=== PATIENT | male | born 1955 | race Caucasian/White ===

== ENCOUNTER 2016-12-23 05:35 | Day surgery (SDC) | payer OTHER ==
[~2016-12-23] VITALS: Ht 177.8 cm; Wt 88.9 kg
--- NOTE | ~2016-12-23 | O ---
[facility] [place] [address] OPERATIVE REPORT Name: JASWANT PICKERING Room #: DEP [facility] MNeisha.#: [id number] Admission: 12/23/16 Attend Phys: Jun Swain MD Discharge: 12/23/16 Date of : 53 Report #: [id number] THIS REPORT FOR: //name// CC: Koki Hong MD [facility] Jun Swain DATE OF SERVICE: 12/23/2016 PREOPERATIVE DIAGNOSIS: Right knee medial meniscus tear, loose body and chondromalacia. POSTOPERATIVE DIAGNOSIS: Right knee medial meniscus tear, loose body and chondromalacia plus lateral meniscus tear. PROCEDURE: Right knee arthroscopy, partial medial meniscectomy, partial lateral meniscectomy, loose body removal and chondroplasty patellofemoral. SURGEON: Jun Swain MD ROAD TESTER: EVELIO Cabrera ANESTHETIC: General. INDICATIONS: See hospital H and P. INDICATIONS FOR ROAD TESTER: During the course of operation, extensive manipulation, retraction and limb positioning was required. This was afforded to me by my physiotherapy assistant. DESCRIPTION OF PROCEDURE: After adequate general anesthesia had been obtained, the patient's right lower extremity was prepped and draped in the usual meticulous sterile fashion. Limb was exsanguinated with gravity and tourniquet inflated to 300 torr. Superomedial portal was established by first infiltrating with 0.5% Naropin and then making a stab incision with an 11 blade, an inflow cannula was placed. The knee was insufflated with fluid. Anterolateral and anteromedial portals were established utilizing the same technique. Complete diagnostic arthroscopy was performed. Medial compartment demonstrated an extensive flap tear of the medial meniscus which did displace into the joint. This was debrided with basket payal to a stable rim. Chondral surfaces demonstrated diffuse chondral thinning grade 2 and some areas of grade 3 centrally on the femoral condyle. Cruciate ligaments were intact. He did have a loose body adjacent to the PCL insertion, which was tethered by a small amount of synovial tissue. This was freed up and then removed. Lateral compartment demonstrated a small flap tear of lateral meniscus [address] [address] OPERATIVE REPORT Name: JASWANT PICKERING Room #: DEP [facility] M.R.#: [id number] Admission: 12/23/16 Attend Phys: Jun Swain MD Discharge: 12/23/16 Date of : 53 Report #: [id number] mid body. This was smoothed with a shaver. Patellofemoral compartment demonstrated chondromalacia, also grade 2 and some grade 3 diffusely in the trochlea and involving the median ridge of the patella and extending to the medial and lateral facet of patella, unstable chondral fragments were smoothed with a shaver. At this time, the knee was irrigated copiously, 0.5% Naropin was infiltrated into the knee. The portals were closed with 4-0 nylon. Sterile compressive dressing was applied. Tourniquet then deflated. <ELECTRONICALLY SIGNED> By: Jun Swain MD 12/26/16 1426 [id number] Jun Swain MD /nt
[~2016-12-23 05:35] MED LIST: ALEVE220 MG PO; CRESTOR10 MG PO
[2016-12-23 11:00] VITALS: BP 135/88
[2016-12-23 13:51] VITALS: BP 135/88
== END 2016-12-23 14:29 | disposition home or self-care (01) ==
LOC: TBA 05:35 → OR 05:35
DX: S83.241A Other tear of medial meniscus, current injury, right knee, initial encounter (principal); S83.281A Other tear of lateral meniscus, current injury, right knee, initial encounter; M94.261 Chondromalacia, right knee; E78.5 Hyperlipidemia, unspecified; Z98.890 Other specified postprocedural states; Z88.1 Allergy status to other antibiotic agents; X58.XXXA Exposure to other specified factors, initial encounter; Y93.89 Activity, other specified; Y92.89 Other specified places as the place of occurrence of the external cause; Y99.8 Other external cause status
CPT/HCPCS: 50010; 50101; 50405; 51038; 54170; 56526; 62110; 62900; 70005